=== PATIENT | male | born 1990 | race Two or more races ===

== ENCOUNTER 2022-02-08 13:26 | Inpatient (IN) | payer OTHER ==
[~2022-02-08] VITALS: Ht 177.8 cm; Wt 76.9 kg
[2022-02-08] MEDS ORDERED: SODIUM CHLORIDE 0.9% 1,000 ML IVB ONE (13:45)
[2022-02-08 14:20] LABS: Basophils # (auto) 0 10 ^3/uL (0-0.2); Basophils % (auto) 0.3 % (0.0-2.0); Eosinophils # (auto) 0 10 ^3/uL (0-0.8); Hemoglobin 15.2 g/dL (13.5-17.5); Lymphocytes # (auto) 2.6 10 ^3/uL (0.4-5.4); Lymphocytes % (auto) 27.6 % (10.0-50.0); Mean Corpuscular Hemoglobin 30.8 pg (28.0-32.0); Mean Corpuscular Hgb Conc. 33.1 g/dL (32.0-36.0); Mean Corpuscular Volume 92.9 fL (80.0-100.0); Monocytes # (auto) 0.5 10 ^3/uL (0-1.3); Monocytes % (auto) 5.1 % (0.0-12.0); Neutrophils # (auto) 6.3 10 ^3/uL (1.6-8.6); Nucleated Red Blood Cells % 0.2 %; Red Blood Cells 4.95 10^6/uL (4.5-5.90); Red Cell Distribution Width 13.6 % (11.8-14.3); White Blood Cell 9.4 10^3/uL (4.4-10.8)
[2022-02-08 14:31] LABS: Albumin 4.1 g/dL (3.4-5.0); Anion Gap 8 (5-15); Blood Urea Nitrogen 5 mg/dL (7-18); Calcium 8.4 mg/dL (8.5-10.1); Carbon Dioxide 28 mmol/L (21-32); Chloride 106 mmol/L (98-107); Glucose 128 mg/dL (74-106); Potassium 3.8 mmol/L (3.5-5.1); Salicylate < 1.7 mg/dL (2.8-20.0); Sodium 142 mmol/L (136-145)
[2022-02-08 14:33] LABS: Lactic Acid w/Reflex 2.2 mmol/L (0.4-2.0)
[2022-02-08 14:36] LABS: Alanine Aminotransferase 25 U/L (16-61); Alkaline Phosphatase 90 U/L (45-117); Aspartate Aminotransferase 19 U/L (15-37); BUN/Creatinine Ratio 1.9; Bilirubin, Total 0.2 mg/dL (0.2-1.0); Blood Alcohol < 3.0 mg/dL (0-5); GFR African American 36 mL/min; GFR Non-African American 30 mL/min; Total Protein 7.9 g/dL (6.4-8.2)
[2022-02-08 14:49] LABS: Acetaminophen < 2.0 ug/mL (10-30)
[2022-02-08] MEDS ORDERED: ONDANSETRON HCL 4 MG/2 ML VIAL IV PRN (16:45)
[2022-02-08] MEDS ORDERED: SODIUM CHLORIDE 0.9% 2,000 ML IV ONE (16:45)
[2022-02-08 17:59] LABS: Salicylate < 1.7 mg/dL (2.8-20.0)
[2022-02-08 19:04] LABS: Acetaminophen < 2.0 ug/mL (10-30)
[2022-02-08] MEDS: SODIUM CHLORIDE 0.9% 1,000 ML IV SCH (21:20)
[2022-02-09 00:27] LABS: Urine Bacteria FEW /hpf (None Seen); Urine Blood 1+ /uL (Negative); Urine Mucus FEW (None Seen); Urine Specific Gravity 1.028 (1.001-1.035); Urine WBC 2 /hpf (0 - 3)
[2022-02-09 00:41] LABS: Alcohol, Urine < 3.0 mg/dL (0-10); Amphetamine Screen, Urine NEGATIVE (NEGATIVE); Barbiturate Scree,Urine NEGATIVE (NEGATIVE); Benzodiazephine Screen, Urine NEGATIVE (NEGATIVE); Cannabinoid Screen, Urine NEGATIVE (NEGATIVE); Cocaine Screen, Urine NEGATIVE (NEGATIVE); Opiate Scree,Urine NEGATIVE (NEGATIVE); Phencyclidine Screen, Urine NEGATIVE (NEGATIVE)
[2022-02-09] MEDS: SODIUM CHLORIDE 0.9% 1,000 ML IV SCH ×4 (01:05→13:59)
[2022-02-09 06:09] LABS: Basophils # (auto) 0 10 ^3/uL (0-0.2); Basophils % (auto) 0.2 % (0.0-2.0); Eosinophils # (auto) 0 10 ^3/uL (0-0.8); Hematocrit 38.6 % (41.0-53.0); Lymphocytes # (auto) 3.2 10 ^3/uL (0.4-5.4); Mean Corpuscular Hemoglobin 31.3 pg (28.0-32.0); Mean Corpuscular Hgb Conc. 33.7 g/dL (32.0-36.0); Mean Corpuscular Volume 92.8 fL (80.0-100.0); Monocytes # (auto) 1.1 10 ^3/uL (0-1.3); Monocytes % (auto) 8.3 % (0.0-12.0); Neutrophils # (auto) 8.5 10 ^3/uL (1.6-8.6); Neutrophils % (auto) 66.5 % (37.0-80.0); Red Blood Cells 4.16 10^6/uL (4.5-5.90); Red Cell Distribution Width 13.6 % (11.8-14.3); White Blood Cell 12.8 10^3/uL (4.4-10.8)
[2022-02-09 06:20] LABS: Albumin 3.4 g/dL (3.4-5.0); BUN/Creatinine Ratio 2.8; Calcium 7.7 mg/dL (8.5-10.1); Potassium 3.6 mmol/L (3.5-5.1)
[2022-02-09 06:31] LABS: Bilirubin, Total 0.3 mg/dL (0.2-1.0); Total Protein 6.3 g/dL (6.4-8.2)
[2022-02-09 10:24] LABS: Folate (Folic Acid) 13.21 ng/mL (5.38-24)
[2022-02-09] MEDS: ENOXAPARIN SOD 40 MG/0.4 ML SYRINGE SC SCH (11:04)
[2022-02-09] MEDS ORDERED: MORPHINE SULFATE INJ 2 MG/ml SYRG IV PRN (11:15)
[2022-02-09] MEDS: FOLIC ACID 1 MG, MULTIPLE VITAMIN 10 ML, MAGNESIUM SULF SDV 50% 8 MEQ, THIAMINE INJ 100... INJ SCH ×5 (12:55)
[2022-02-09] MEDS ORDERED: ACETAMINOPHEN 500 MG TAB PO PRN (14:00)
[2022-02-09] MEDS ORDERED: HYDROcodone-ACET 5/325MG TAB PO PRN (14:00)
[2022-02-09 15:55] VITALS: BP 116/63
[2022-02-09] MEDS ORDERED: TRAZ50TA2 PO (17:50)
[2022-02-09] MEDS ORDERED: ESCI-34 PO (17:56)
[2022-02-09] MEDS ORDERED: BUPR-160 PO (17:56)
[2022-02-09 22:00] VITALS: BP 136/69
[2022-02-09] MEDS: busPIRone HCL 10 MG TAB PO SCH (22:42)
[2022-02-09] MEDS: traZODone HCL 50 MG TAB PO SCH (22:42)
[2022-02-10] MEDS: SODIUM CHLORIDE 0.9% 1,000 ML IV SCH ×3 (00:25→22:42)
[2022-02-10 05:00] VITALS: BP 125/75
[2022-02-10 06:05] LABS: Basophils # (auto) 0 10 ^3/uL (0-0.2); Basophils % (auto) 0.3 % (0.0-2.0); Eosinophils # (auto) 0 10 ^3/uL (0-0.8); Eosinophils % (auto) 0.3 % (0.0-7.0); Hemoglobin 13.4 g/dL (13.5-17.5); Lymphocytes # (auto) 2.9 10 ^3/uL (0.4-5.4); Lymphocytes % (auto) 37.3 % (10.0-50.0); Mean Corpuscular Hemoglobin 31.2 pg (28.0-32.0); Mean Corpuscular Hgb Conc. 33.5 g/dL (32.0-36.0); Mean Corpuscular Volume 93.3 fL (80.0-100.0); Monocytes # (auto) 0.7 10 ^3/uL (0-1.3); Monocytes % (auto) 9.4 % (0.0-12.0); Neutrophils # (auto) 4.1 10 ^3/uL (1.6-8.6); Neutrophils % (auto) 52.7 % (37.0-80.0); Red Blood Cells 4.28 10^6/uL (4.5-5.90); Red Cell Distribution Width 13.6 % (11.8-14.3); White Blood Cell 7.7 10^3/uL (4.4-10.8)
[2022-02-10 06:22] LABS: Potassium 4.2 mmol/L (3.5-5.1)
[2022-02-10 06:29] LABS: Albumin 3.4 g/dL (3.4-5.0); BUN/Creatinine Ratio 2.5; Bilirubin, Total 0.4 mg/dL (0.2-1.0)
[2022-02-10] MEDS: buPROPion HCL 75 MG TAB PO SCH (06:44)
[2022-02-10 09:00] VITALS: BP 120/73
[2022-02-10] MEDS: ENOXAPARIN SOD 40 MG/0.4 ML SYRINGE SC SCH (10:31)
[2022-02-10] MEDS: busPIRone HCL 10 MG TAB PO SCH ×2 (10:31→22:43)
[2022-02-10] MEDS: FOLIC ACID 1 MG, MULTIPLE VITAMIN 10 ML, MAGNESIUM SULF SDV 50% 8 MEQ, THIAMINE INJ 100... INJ SCH ×5 (12:34)
[2022-02-10 13:00] VITALS: BP 132/85
[2022-02-10 17:00] VITALS: BP 139/80
[2022-02-10 22:00] VITALS: BP 127/67
[2022-02-10] MEDS: traZODone HCL 50 MG TAB PO SCH (22:43)
[2022-02-11 05:00] VITALS: BP 112/83
[2022-02-11] MEDS: SODIUM CHLORIDE 0.9% 1,000 ML IV SCH ×2 (06:11→09:37)
[2022-02-11] MEDS: buPROPion HCL 75 MG TAB PO SCH (08:10)
[2022-02-11] MEDS: ENOXAPARIN SOD 40 MG/0.4 ML SYRINGE SC SCH (09:30)
[2022-02-11] MEDS: busPIRone HCL 10 MG TAB PO SCH ×2 (09:30→21:47)
[2022-02-11] MEDS: FOLIC ACID 1 MG, MULTIPLE VITAMIN 10 ML, MAGNESIUM SULF SDV 50% 8 MEQ, THIAMINE INJ 100... INJ SCH ×5 (15:56)
[2022-02-11] MEDS: traZODone HCL 50 MG TAB PO SCH (21:47)
[2022-02-11 21:51] VITALS: BP 128/86
[2022-02-12] MEDS: SODIUM CHLORIDE 0.9% 1,000 ML IV SCH ×3 (01:45→21:15)
[2022-02-12 05:00] VITALS: BP 123/64
[2022-02-12] MEDS: buPROPion HCL 75 MG TAB PO SCH (06:29)
[2022-02-12] MEDS: busPIRone HCL 10 MG TAB PO SCH ×2 (09:40→21:16)
[2022-02-12] MEDS: ENOXAPARIN SOD 40 MG/0.4 ML SYRINGE SC SCH (09:40)
[2022-02-12] MEDS: FOLIC ACID 1 MG, MULTIPLE VITAMIN 10 ML, MAGNESIUM SULF SDV 50% 8 MEQ, THIAMINE INJ 100... INJ SCH ×5 (12:49)
[2022-02-12 12:52] VITALS: BP 140/75
[2022-02-12 17:00] VITALS: BP 126/83
[2022-02-12] MEDS: traZODone HCL 50 MG TAB PO SCH (21:16)
[2022-02-12 22:00] VITALS: BP 120/75
[2022-02-13 05:00] VITALS: BP 137/62
[2022-02-13] MEDS: buPROPion HCL 75 MG TAB PO SCH (06:43)
[2022-02-13 08:00] VITALS: BP 133/74
[2022-02-13] MEDS: SODIUM CHLORIDE 0.9% 1,000 ML IV SCH (09:49)
[2022-02-13] MEDS: ENOXAPARIN SOD 40 MG/0.4 ML SYRINGE SC SCH (09:49)
[2022-02-13] MEDS: busPIRone HCL 10 MG TAB PO SCH (09:49)
[2022-02-13 12:00] VITALS: BP 136/79
[2022-02-13 16:00] VITALS: BP 131/78
[2022-02-13 20:30] VITALS: BP 137/72
== END 2022-02-13 20:45 | disposition home or self-care (01) | DRG 91 ==
LOC: EDBD 13:26 → EDUNIT# 13:26 → ER 13:26 → TELE 16:57 → TELE-WESTW 02-09 15:51 → WEST WING 02-09 18:59 → TELE-WESTW 02-09 20:54
PROVIDERS: ADMIT Nurse Practitioner Family; ATTEND Nurse Practitioner Acute Care
DX: G92.8 Other toxic encephalopathy (principal); N17.0 Acute kidney failure with tubular necrosis; F33.2 Major depressive disorder, recurrent severe without psychotic features; F10.229 Alcohol dependence with intoxication, unspecified; F43.10 Post-traumatic stress disorder, unspecified; E86.0 Dehydration; R00.0 Tachycardia, unspecified; Z20.822 Contact with and (suspected) exposure to COVID-19; Z63.72 Alcoholism and drug addiction in family; Z81.3 Family history of other psychoactive substance abuse and dependence; Z81.8 Family history of other mental and behavioral disorders; Z82.49 Family history of ischemic heart disease and other diseases of the circulatory system; Z83.3 Family history of diabetes mellitus
CPT/HCPCS: 36415; 36600; 70450; 70551; 71045; 80053; 80307; 80320; 80329; 81001; 82140; 82607; 82746; 82805; 83605; 83930; 84443; 85025; 87426; 93005; 95819; 96361; 96374; 96375; G0378; J2405

== ENCOUNTER 2022-09-02 19:16 | Emergency (ER) | payer OTHER ==
[~2022-09-02] VITALS: Ht 180.3 cm; Wt 68.1 kg
[~2022-09-02 19:16] MED LIST: BUPR-160 PO; ESCI-34 PO; TRAZ50TA2 PO
[2022-09-02] MEDS ORDERED: LACTATED RINGER'S 1,000 ML IV ONE (19:45)
[2022-09-02] MEDS ORDERED: LORazepam 0.5 MG TAB PO ONE (19:45)
[2022-09-02 19:51] LABS: Urine WBC None Seen /hpf (0 - 3)
[2022-09-02 19:57] LABS: Basophils # (auto) 0 10 ^3/uL (0-0.2); Basophils % (auto) 0.3 % (0.0-2.0); Eosinophils # (auto) 0 10 ^3/uL (0-0.8); Eosinophils % (auto) 0.4 % (0.0-7.0); Hematocrit 42.9 % (41.0-53.0); Hemoglobin 14.7 g/dL (13.5-17.5); Lymphocytes # (auto) 1.6 10 ^3/uL (0.4-5.4); Mean Corpuscular Hemoglobin 31.6 pg (28.0-32.0); Mean Corpuscular Hgb Conc. 34.2 g/dL (32.0-36.0); Mean Corpuscular Volume 92.3 fL (80.0-100.0); Monocytes % (auto) 12.2 % (0.0-12.0); Neutrophils # (auto) 5.4 10 ^3/uL (1.6-8.6); Neutrophils % (auto) 67.1 % (37.0-80.0); Nucleated Red Blood Cells % 0.1 %; Red Blood Cells 4.64 10^6/uL (4.5-5.90); Red Cell Distribution Width 13.8 % (11.8-14.3)
[2022-09-02 20:10] LABS: Albumin 4.1 g/dL (3.4-5.0); BUN/Creatinine Ratio 14.8 (10.0-20.0); Calcium 9.3 mg/dL (8.5-10.1); Potassium 4.5 mmol/L (3.5-5.1)
[2022-09-02 20:13] LABS: Bilirubin, Total 0.5 mg/dL (0.2-1.0); Total Protein 7.8 g/dL (6.4-8.2)
[2022-09-02 20:13] LABS: Urine Amorphous Crystal FEW /hpf (None Seen); Urine Bacteria NONE SEEN /hpf (None Seen); Urine Blood 1+ /uL (Negative); Urine Specific Gravity 1.018 (1.001-1.035)
[2022-09-02 20:27] LABS: Magnesium 2.5 mg/dL (1.6-2.6)
[2022-09-02 20:27] LABS: Alcohol, Urine < 3.0 mg/dL (0-10); Amphetamine Screen, Urine NEGATIVE (NEGATIVE); Barbiturate Scree,Urine NEGATIVE (NEGATIVE); Benzodiazephine Screen, Urine NEGATIVE (NEGATIVE); Cannabinoid Screen, Urine NEGATIVE (NEGATIVE); Cocaine Screen, Urine NEGATIVE (NEGATIVE); Opiate Scree,Urine NEGATIVE (NEGATIVE); Phencyclidine Screen, Urine NEGATIVE (NEGATIVE)
[2022-09-02] MEDS ORDERED: LORazepam 2MG/ML-1ML VIAL IM ONE (23:15)
[2022-09-02 23:28] VITALS: BP 140/87
== END 2022-09-03 02:00 | disposition home or self-care (01) ==
LOC: ER 19:16
DX: F41.9 Anxiety disorder, unspecified (principal); F10.239 Alcohol dependence with withdrawal, unspecified; F32.9 Major depressive disorder, single episode, unspecified; Y90.0 Blood alcohol level of less than 20 mg/100 ml
CPT/HCPCS: 36415; 71046; 80053; 80307; 80320; 81001; 82010; 83690; 83735; 83880; 83930; 84484; 85025; 93005; 96360; 96372; 99285; J2060; J7030